=== PATIENT | female | born 2000 | race Two or more races ===

== ENCOUNTER 2025-03-03 13:17 | Emergency (ER) | payer MEDICAID, SELFPAY ==
[2025-03-03 13:18] VITALS: PULSE 88; RESP 16; O2SAT 98
--- NOTE | 2025-03-03 14:26 | PD.EDWOUND ---
ED Wound/Laceration-RME/HPI General Chief Complaint: Wound/Laceration Stated Complaint: LAC R) INDEX FINGER Time Seen by Provider: 03/03/25 13:24 Arrival date/time: 03/03/25 13:17 25-year-old female presents emergency department today stating that she was doing dishes today and obtain a laceration to her right index finger Limitations: no limitations Related Data Allergies Allergy/AdvReac Type Severity Reaction Status Date / Time No Known Allergies Allergy Verified 03/03/25 13:20 Review of Systems Review of Systems Systems Reviewed: All systems reviewed, normal except as documented Constitutional Constitutional: Reports system reviewed and no additional complaints, except as documented, Denies fever(s) and Denies headache(s) Eyes Eyes: Reports system reviewed and no additional complaints, except as documented and Denies blurry vision ENT Ears, Nose, Mouth, and Throat: Reports system reviewed and no additional complaints, except as documented, Denies headache(s), Denies nasal congestion and Denies nasal discharge Cardiovascular Cardiovascular: Reports system reviewed and no additional complaints, except as documented, Denies chest pain and Denies dyspnea Respiratory Respiratory: Reports system reviewed and no additional complaints, except as documented, Denies chest congestion, Denies cough and Denies dyspnea Gastrointestinal Gastrointestinal: Reports system reviewed and no additional complaints, except as documented and Denies abdominal pain Integumentary/Breasts Skin/Breast: Reports system reviewed and no additional complaints, except as documented, Denies rash and Reports wounds (Laceration right index finger) Neurologic Neurologic: Reports system reviewed and no additional complaints, except as documented, Reports as per HPI and Denies headache(s) Past Medical History Social History SMOKING STATUS: Never smoker ED Exam General Limitations: Present no limitations General appearance: Present alert and in no apparent distress Head Head exam: Present atraumatic, normocephalic and normal inspection Eye Eye exam: Present normal appearance, PERRL and EOMI; Absent conjunctival injection ENT ENT exam: Present normal exam, normal oropharynx and mucous membranes moist Neck Neck exam: Present normal inspection, full ROM and trachea midline Chest Chest inspection: Present normal inspection and symmetric chest wall rise Respiratory Respiratory exam: Present normal lung sounds bilaterally Cardiovascular Cardiovascular exam: Present regular rate, normal rhythm and normal heart sounds Abdominal Exam Abdominal exam: Present soft and normal bowel sounds Extremities Exam Extremities exam: Present full ROM, tenderness and normal capillary refill; Absent joint swelling Back Exam Back exam: Present normal inspection and full ROM Neurological Exam Neurological exam: Present alert, oriented X3 and CN II-XII intact Psychiatric Psychiatric exam: Present normal affect and normal mood Skin Skin exam: Present warm, dry and other (Laceration right index finger ) Course Quality Measures none Orders Category Date Time Status Set Up Suture Tray STAT Care 03/03/25 15:19 Active Wound Care NOW Care 03/03/25 15:19 Active Lidocaine 1% 20 ml [Xylocaine 1% 20 ML] Med 03/03/25 15:18 Discontinued 20 ml INFL X1 ONE TET,DIP/PERT AC (Adult)-Tdap [Boostrix Adult (Tdap) Med 03/03/25 15:18 Discontinued Vacc] 0.5 ml IMI .ONCE ONE Vital Signs Vital signs: Vital Signs Temperature 98.3 F 03/03/25 14:28 Pulse Rate 76 03/03/25 14:28 Respiratory Rate 18 03/03/25 14:28 Blood Pressure 117/67 03/03/25 14:28 Pulse Oximetry (%) 98 03/03/25 14:28 Oxygen Delivery Method Room Air 03/03/25 14:28 O2 saturation 98% room air with normal PROCEDURES: Laceration Laceration 1: Site: hand Side (If applicable): right Size (cm): 4 Depth: simple, single layer Local Anesthetic: lidocaine 1% Amount of anesthesia used (mL): 8 Pre-repair: wound explored Skin layer closed with: nylon Suture size (cm): 5-0 Number of sutures: 6 Technique: simple, interrupted Wound / Laceration MDM Narrative MDM Narrative:: 25-year-old female presents emergency department today stating that she was doing dishes today and obtain a laceration to her right index finger On exam patient is laceration right index finger on the dorsal aspect patient has no evidence of tendon ligamentous injury Wound irrigated copiously laceration repaired sick sutures applied Patient discharged home in no distress to follow-up with primary care doctor in the next 24 to 48 hours and for any worsening symptoms to return to the ER immediately Patient data External records reviewed:: [facility] previous records Clinical information provided by:: patient Social determinants that could affect healthcare access:: none Patient has the following chronic illnesses:: None How is presenting disease/condition affected by chronic disease/condition?: no chronic disease Evaluation data The following diagnostics were reviewed and interpreted by me:: other (specify) Lab and/or radiology exams considered but not ordered:: Considered not indicated Interpretation Summary: N/A Medications / Prescriptions Medications or Prescriptions considered but not ordered:: Given Medication administrations:: Medication Administration History Discontinued Medications Diphtheria/Tetanus/Acell Pertussis (Diphth,Pertuss(Acell),Tet Vac 0.5 Ml Syr- Adult) 0.5 ml IMi .ONCE ONE Stop: 03/03/25 15:19 Lidocaine HCl (Lidocaine Hcl 1% 20 Ml Vial) 20 ml INFL X1 ONE Stop: 03/03/25 15:19 Given Consultations Consultation(s) initiated? (list below): No Diagnosis Wound Differential Diagnosis: laceration, abscess, abrasion and avulsion of skin Most likely diagnosis given after review of the tests above:: Laceration Admission Indicated Admission indicated?: not indicated Admission Request Was there a request for admission?: No Disposition Plan Disposition Plan: Discharge Discharge Attestation Discharge Attestation: The patient and all family members were given an opportunity to ask questions and understood the discharge instructions. Discharge instructions specifically effects, indications for sooner follow up or return to the emergency department, and the expected course of current diagnosis. Patient condition: Stable Discharge Plan Plan Patient Disposition: HOME (Self Care) Discharge Disposition comment: Stable Problem List Clinical Impression: Laceration of right index finger Patient/Caregiver Discharge Instructions Education Materials: ED Laceration: All Closures Additional Instructions: Please follow up with your primary care doctor in the next 24-48hrs for any worsening symptoms return here immediately Please have sutures removed in 10 to 14 days Print Language: Panamanian Stand Alone Forms: Jacklyn Award Info., Patient Portal Info Letter Vaccines Vaccines Given During Stay: TDaP PA/[employer] Supervising Physician EMERY/CAMERON Supervising Physician: Dr. Lang
[2025-03-03 14:28] VITALS: BP 117/67; PULSE 76; RESP 18; TEMP 36.8; O2SAT 98; BMI 35.4
[2025-03-03] MEDS: LIDOCAINE HCL 1% 20 ML VIAL INFL (16:18)
== END 2025-03-03 16:20 | disposition home or self-care (01) ==
LOC: SERX 15:53
PROVIDERS: Emergency Provider Emergency Medicine; PCP Student in an Organized Health Care Education/Training Program
DX: S61.210A Laceration without foreign body of right index finger without damage to nail, initial encounter (principal); X58.XXXA Exposure to other specified factors, initial encounter; Y93.G1 Activity, food preparation and clean up
CPT/HCPCS: 12002; 99284; J3490

== ENCOUNTER 2025-05-23 18:53 | Observation (INO) | payer MEDICAID, SELFPAY ==
[2025-05-23] VITALS (31 sets, daily range): BP systolic 116–136; BP diastolic 59–75; PULSE 61–118; RESP 19–100; TEMP 36.8; O2SAT 82–100; BMI 38.0
--- NOTE | 2025-05-23 19:05 | XR_ITS ---
Examination: Complete OB ultrasound greater than 14 weeks Date and time of exam: May 23, 2025, 2017 hours INDICATIONS: Pelvic pressure and vaginal bleeding beginning 1815 hours today Findings: Viable intrauterine single fetus with single amniotic sac presentation transverse head maternal right Cardiac motion 145 bpm Placenta anterior grade 3 Umbilical cord insertion seen Amniotic fluid index 16.1 cm spine transverse Cervix 4.3 cm Ovaries obscured by the uterus. Composite estimated gestational age based on BPD, head circumference, abdominal circumference, femur length is 35 weeks 6 days Estimated weight 2819 g. Survey of intracranial anatomy, spinal anatomy, abdominal anatomy, four-chamber heart performed with no abnormalities identified. Impression: Five-point uterine gestation in transverse presentation.
== END 2025-05-23 21:43 | disposition home or self-care (01) ==
PROVIDERS: Admitting Provider Obstetrics & Gynecology; Visit Provider Obstetrics & Gynecology
DX: O46.93 Antepartum hemorrhage, unspecified, third trimester (principal); O32.2XX0 Maternal care for transverse and oblique lie, not applicable or unspecified; Z3A.35 35 weeks gestation of pregnancy
CPT/HCPCS: 59025; 59899; 76805